=== PATIENT | female | born 1980 | race Caucasian/White ===

== ENCOUNTER 2018-05-15 09:20 | Inpatient (IN) | payer MEDICAID, SELFPAY ==
--- NOTE | 2018-05-15 10:18 | PCM.SN ---
- Free Text/Narrative Note: 37 y/o ZOHAIB 06/03/18 at EGA 37w2d. Presented to L&D C/O contractions. NST reactive, contractions q2-5 minutes, irregular. Cervix 1 cm, 20 % effaced, soft , posterior, vertex -3 station. Re-evaluate in 2-3 hours. Keep in L&D for now. We'll recheck patient in 2-3 hours (RN check) to see if cervical change. Z3A.37 GBS Carrier Z22.330 Irregular contractions O62.2 Patient's cervix changed to 5 cm dilated at approximately 2-30 p.m. patient admitted for labor. See history and physical
[2018-05-15] MEDS ORDERED: Nalbuphine 20 MG/ML 1 ML Syringe IVPUSH PRN (14:23)
[2018-05-15] MEDS ORDERED: Sodium Chloride 0.9% 10 ML Syringe FLUSH PRN (14:23)
[2018-05-15] MEDS ORDERED: Ampicillin 2 GM in Sodium Chloride 0.9% 100 ML IV ONE (14:24)
[2018-05-15] MEDS ORDERED: Lactated Ringers 1,000 ML ONE (14:28)
[2018-05-15] MEDS ORDERED: Sodium Chloride 0.9% 100 ML ONE (14:28)
[2018-05-15] MEDS ORDERED: Ampicillin 2 GM AdvVial IV ONE (14:28)
[2018-05-15] MEDS ORDERED: Oxytocin/Lactated Ringers 10 UNIT/1,000 ML BAG IV SCH ×2 (14:30)
[2018-05-15] MEDS ORDERED: Lactated Ringers 1,000 ML IV SCH (14:30)
--- NOTE | 2018-05-15 15:10 | PCM.LDHP ---
L&D History of Present Illness - General Date of Service: 05/15/18 Admit Problem/Dx: Patient Status Order with Admit Dx/Problem 05/15/18 14:23 Patient Status [ADT] Routine Admission Diagnosis/Problem Admission Diagnosis/Problem Source of Information: Patient History Limitations: Reports: No Limitations - History of Present Illness Introduction:: 37-year-old 0-1 (1 induced 1 spontaneous ) ZOHAIB 06/03/18 presented to labor and delivery complaining of irregular contractions. Patient was observed in labor and delivery and cervix changed from 1 cm 20% effaced to 5 cm and 50% effaced patient had needed for labor and delivery. Patient is group B strep positive. Blood type O- antibody screen negative on 11/30/17. Hemoglobin/hematocrit 12.6/ 37.2 and platelets 266,000. Rubella nonimmune VDRL nonreactive urine culture showed 40,000 colonies of Escherichia col on initial urine culture. Hepatitis B surface antigen was negative GC and chlamydia negative 03/17/18 hemoglobin/hematocrit 11.6/35.0 platelets 222,001 hour OB glucose screen 156 follow-up 3 hour glucose tolerance test fasting 87, 1 hour 154, two- hour 136, 3 hour 78. group B strep positive. On 03/17/18 patient received rRhoGam. Prior delivery 03/24/2017 at 37 weeks' gestation 6 lbs. 10 oz. female normal spontaneous vaginal delivery under epidural anesthesia Ultrasound obtained 11/05/1809 weeks 2 days single intrauterine gestation heart rate 172 Ultrasound 01/15/18 at 20 weeks and 2 days normal anatomy no abnormalities fundal and left lateral placenta no previa. Estimated weight that time 338 g (12 ounces) (48th percentile) C three-vessel cord HIPOLITO 10.78. Heart rate 1 52 bpm No known drug allergies. Patient underwent a LEEP procedure on 2007. 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) Location, : Reports: Abdomen, Lower back Quality: Reports: Pressure Severity: Moderate Pain Score: 6 Improves with: Reports: None Worsens with: Reports: None Associated Symptoms: Reports: N Past Medical History : 2 Para: 1 LMP (Approximate): Other (See Below) (Prior LEEP 2007) H&P Review of Systems - Review of Systems: Review Of Systems: See Below General: Reports: No Symptoms HEENT: Reports: No Symptoms Pulmonary: Reports: No Symptoms Cardiovascular: Reports: No Symptoms Gastrointestinal: Reports: No Symptoms Genitourinary: Reports: No Symptoms Musculoskeletal: Reports: No Symptoms Skin: Reports: No Symptoms Psychiatric: Reports: No Symptoms Neurological: Reports: No Symptoms Hematologic/Lymphatic: Reports: No Symptoms Immunologic: Reports: No Symptoms L&D Exam - Exam Exam: See Below - Vital Signs Weight: 214 lb 4.8 oz - OB Specific Fundal Height In cm: 37 Contraction Duration (sec): 60 Contraction Frequency (min): 2-5 Contraction Intensity: Moderate Movement: Active Heart Tones: Present Heart Tones per Min: 140 Heart Rate (FHR) Variability: Moderate (6-25 bmp) Presentation: Vertex - Amanda Score Amanda Score Cervix Position: Anterior Amanda Score Consistency: Soft Amanda Score Effacement: 31-50% Amanda Score Dilation: > 5 cm Amanda Score 's Station: -2 Amanda Score Total: 9 - Exam General: Alert, Oriented HEENT: Conjunctiva Clear, Mucosa Moist & [place], PERRLA Neck: Supple, Trachea Midline Lungs: Clear to Auscultation, Normal Respiratory Effort Cardiovascular: Regular Rate, Regular Rhythm GI/Abdominal Exam: Normal Bowel Sounds, Soft, Non-Tender Genitourinary: Normal external exam Extremities: Normal Inspection, Normal Range of Motion, Non-Tender, No Pedal Edema, Normal Capillary Refill Skin: Warm, Dry, Intact Neurological: Reflexes Equal Bilateral Psychiatric: Alert, Normal Affect, Normal Mood - Patient Data Lab Results Last 24 hrs: Laboratory Results - last 24 hr 05/15/18 05/15/18 05/15/18 Range/Units 09:32 10:00 10:00 WBC 9.08 (3.98-10.04) K/mm3 RBC 4.20 (3.98-5.22) M/mm3 Hgb 12.2 (11.2-15.7) gm/L Hct 37.6 (34.1-44.9) % MCV 89.5 (79.4-94.8) fl MCH 29.0 (25.6-32.2) pg MCHC 32.4 (32.2-35.5) g/dl RDW Std Deviation 46.1 (36.4-46.3) fL Plt Count 212 (182-369) K/mm3 MPV 11.0 (9.4-12.3) fl Neut % (Auto) 70.7 (34.0-71.1) % Lymph % (Auto) 18.5 L (19.3-51.7) % [place] % (Auto) 9.7 (4.7-12.5) % Eos % (Auto) 0.7 (0.7-5.8) Baso % (Auto) 0.2 (0.1-1.2) % Neut # (Auto) 6.42 H (1.56-6.13) K/mm3 Lymph # (Auto) 1.68 (1.18-3.74) K/mm3 [place] # (Auto) 0.88 H (0.24-0.36) K/mm3 Eos # (Auto) 0.06 (0.04-0.36) K/mm3 Baso # (Auto) 0.02 (0.01-0.08) K/mm3 Urine Color Yellow (Yellow) Urine Appearance Slt cloudy H (Clear) Urine pH 7.5 (5.0-8.0) Ur Specific [place] 1.020 (1.005-1.030) Urine Protein 1+ H (Negative) Urine Glucose (UA) Negative (Negative) Urine Ketones Negative (Negative) Urine Occult Blood Negative (Negative) Urine Nitrite Negative (Negative) Urine Bilirubin Negative (Negative) Urine Urobilinogen 0.2 (0.2-1.0) Ur Leukocyte Esterase Negative (Negative) Urine RBC 0-5 (0-5) /hpf Urine WBC 0-5 (0-5) /hpf Ur Epithelial Cells 0-5 (0-5) /hpf Urine Bacteria Few (FEW) /hpf Urine Mucus Not seen (FEW) /hpf Blood Type O NEGATIVE Gel Antibody Screen Positive Result Diagrams: 05/15/18 10:00 - Problem List (1) 37 weeks gestation of SNOMED Code(s): 53117294 ICD Code: Z3A.37 - 37 WEEKS GESTATION OF Status: Acute Current Visit: Yes (2) Carrier or suspected carrier of group B Streptococcus SNOMED Code(s): 709015481 ICD Code: Z22.330 - CARRIER OF GROUP B STREPTOCOCCUS Status: Acute Current Visit: Yes (3) Advanced maternal age (AMA) in SNOMED Code(s): 898214264 ICD Code: [id number] - Status: Acute Current Visit: Yes Problem List Initiated/Reviewed/Updated: No Orders Last 24hrs: Active Orders 24 hr Category Date Time Status Patient Status [ADT] Routine ADT 05/15/18 14:23 Active Activity as Tolerated [RC] PFP Care 05/15/18 14:23 Active Communication Order [RC] ASDIRECTED Care 05/15/18 14:23 Active Heart Tones [RC] ASDIRECTED Care 05/15/18 14:23 Active Non Stress Test [RC] PER UNIT ROUTINE Care 05/15/18 09:44 Active Notify Provider [RC] PFP Care 05/15/18 14:23 Active Notify Provider [RC] PRN Care 05/15/18 14:23 Active Peripheral IV Care [RC] . DIRECTED Care 05/15/18 14:23 Active Vital Signs [RC] PER UNIT ROUTINE Care 05/15/18 09:44 Active Regular Diet [DIET] Diet 05/15/18 Lunch Active ANTIBODY IDENTIFICATION [BBK] Stat Lab 05/15/18 10:00 Results CULTURE URINE [RM] Stat Lab 05/15/18 09:32 Received RAPID PLASMA REAGIN,RPR [CHEM] Routine Lab 05/15/18 10:00 Received TYPE AND SCREEN [BBK] Stat Lab 05/15/18 10:00 Results Ampicillin 1 gm Med 05/15/18 18:30 Active Sodium Chloride 0.9% [Normal Saline] 100 ml IV Q4H Lactated Ringers [Ringers, Lactated] 1,000 ml Med 05/15/18 14:30 Active IV ASDIRECTED Nalbuphine [Nubain] Med 05/15/18 14:23 Active 10 mg IVPUSH Q2H PRN Oxytocin/Lactated Ringers [Pitocin in LR 10 Units/1,000 Med 05/15/18 14:30 Active ML] 10 unit in 1,000 ml IV .CONTINUOUS Oxytocin/Lactated Ringers [Pitocin in LR 10 Units/1,000 Med 05/15/18 14:30 Active ML] 10 unit in 1,000 ml IV TITRATE Sodium Chloride 0.9% [Saline Flush] Med 05/15/18 14:23 Active 10 ml FLUSH ASDIRECTED PRN Electronic Heart Tones Ext w TOCO [WOMSER] Oth 05/15/18 14:23 Ordered Routine Electronic Heart Tones Internal [WOMSER] Per Unit Oth 05/15/18 14:23 Ordered Routine Peripheral IV Insertion Adult [OM.PC] Routine Oth 05/15/18 14:23 Ordered Resuscitation Status Routine Resus Stat 05/15/18 09:44 Ordered Medication Orders Ampicillin Sodium 1 gm/ Sodium (Chloride) 100 mls @ 200 mls/hr IV Q4H VINAYAK Lactated Ringer's (Ringers, Lactated) 1,000 mls @ 100 mls/hr IV ASDIRECTED VINAYAK Oxytocin/Lactated Ringer's (Pitocin In Lr 10 Units/1,000 Ml) 10 unit in 1,000 mls @ 500 mls/hr IV .CONTINUOUS VINAYAK Oxytocin/Lactated Ringer's (Pitocin In Lr 10 Units/1,000 Ml) 10 unit in 1,000 mls @ 12 mls/hr IV TITRATE VINAYAK; Protocol Nalbuphine HCl (Nubain) 10 mg IVPUSH Q2H PRN PRN Reason: pain Sodium Chloride (Saline Flush) 10 ml FLUSH ASDIRECTED PRN PRN Reason: Keep Vein Open Assessment/Plan Comment:: Plan labor and delivery
[2018-05-15] MEDS ORDERED: Ondansetron 4 MG/2 ML SDV IVPUSH PRN (16:01)
[2018-05-15] MEDS ORDERED: fentaNYL 100 MCG/2 ML SDV EPIDUR PRN (16:01)
[2018-05-15] MEDS ORDERED: diphenhydrAMINE 50 MG/ML SDV IVPUSH PRN (16:01)
[2018-05-15] MEDS ORDERED: ePHEDrine 50 MG/ML SDV IVPUSH PRN (16:01)
[2018-05-15] MEDS ORDERED: Bupivacaine/fentaNYL/NS 100 ML Bag EPIDUR SCH (16:15)
--- NOTE | 2018-05-15 16:24 | PCM.PREANE ---
Preanesthetic Assessment - Anesthesia/Transfusion/Family Hx Anesthesia History: Prior Anesthesia Without Reaction Family History of Anesthesia Reaction: No - Review of Systems General: No Symptoms Pulmonary: No Symptoms Cardiovascular: No Symptoms Gastrointestinal: No Symptoms Neurological: No Symptoms Other: Reports: None - Physical Assessment Pulse: 88 O2 Sat by Pulse Oximetry: 98 Respiratory Rate: 18 Blood Pressure: 130/88 Height: 1.73 m Weight: 97.205 kg ASA Class: 2 Mental Status: Alert & Oriented x3 Airway Class: Mallampati = 1 Dentition: Reports: Normal Dentition Thyro-Mental Finger Breadths: 3 Mouth Opening Finger Breadths: 3 ROM/Head Extension: Full Lungs: Clear to Auscultation, Normal Respiratory Effort Cardiovascular: Regular Rate, Regular Rhythm - Lab Values: Laboratory Last Values WBC 9.08 K/mm3 (3.98-10.04) 05/15/18 10:00 RBC 4.20 M/mm3 (3.98-5.22) 05/15/18 10:00 Hgb 12.2 gm/L (11.2-15.7) 05/15/18 10:00 Hct 37.6 % (34.1-44.9) 05/15/18 10:00 MCV 89.5 fl (79.4-94.8) 05/15/18 10:00 MCH 29.0 pg (25.6-32.2) 05/15/18 10:00 MCHC 32.4 g/dl (32.2-35.5) 05/15/18 10:00 RDW Std Deviation 46.1 fL (36.4-46.3) 05/15/18 10:00 Plt Count 212 K/mm3 (182-369) 05/15/18 10:00 MPV 11.0 fl (9.4-12.3) 05/15/18 10:00 Neut % (Auto) 70.7 % (34.0-71.1) 05/15/18 10:00 Lymph % (Auto) 18.5 % (19.3-51.7) L 05/15/18 10:00 [place] % (Auto) 9.7 % (4.7-12.5) 05/15/18 10:00 Eos % (Auto) 0.7 (0.7-5.8) 05/15/18 10:00 Baso % (Auto) 0.2 % (0.1-1.2) 05/15/18 10:00 Neut # (Auto) 6.42 K/mm3 (1.56-6.13) H 05/15/18 10:00 Lymph # (Auto) 1.68 K/mm3 (1.18-3.74) 05/15/18 10:00 [place] # (Auto) 0.88 K/mm3 (0.24-0.36) H 05/15/18 10:00 Eos # (Auto) 0.06 K/mm3 (0.04-0.36) 05/15/18 10:00 Baso # (Auto) 0.02 K/mm3 (0.01-0.08) 05/15/18 10:00 Urine Color Yellow (Yellow) 05/15/18 09:32 Urine Appearance Slt cloudy (Clear) H 05/15/18 09:32 Urine pH 7.5 (5.0-8.0) 05/15/18 09:32 Ur Specific [place] 1.020 (1.005-1.030) 05/15/18 09:32 Urine Protein 1+ (Negative) H 05/15/18 09:32 Urine Glucose (UA) Negative (Negative) 05/15/18 09:32 Urine Ketones Negative (Negative) 05/15/18 09:32 Urine Occult Blood Negative (Negative) 05/15/18 09:32 Urine Nitrite Negative (Negative) 05/15/18 09:32 Urine Bilirubin Negative (Negative) 05/15/18 09:32 Urine Urobilinogen 0.2 (0.2-1.0) 05/15/18 09:32 Ur Leukocyte Esterase Negative (Negative) 05/15/18 09:32 Urine RBC 0-5 /hpf (0-5) 05/15/18 09:32 Urine WBC 0-5 /hpf (0-5) 05/15/18 09:32 Ur Epithelial Cells 0-5 /hpf (0-5) 05/15/18 09:32 Urine Bacteria Few /hpf (FEW) 05/15/18 09:32 Urine Mucus Not seen /hpf (FEW) 05/15/18 09:32 Blood Type O NEGATIVE 05/15/18 10:00 Gel Antibody Screen Positive 05/15/18 10:00 - Acknowledgements Anesthesia Type Planned: Spinal Pt an Appropriate Candidate for the Planned Anesthesia: Yes Alternatives and Risks of Anesthesia Discussed w Pt/Guardian: Yes Pt/Guardian Understands and Agrees with Anesthesia Plan: Yes PreAnesthesia Questionnaire - CURRENT (IN HOUSE) MEDS Current Meds: Current Medications Diphenhydramine HCl (Benadryl) 25 mg IVPUSH Q6H PRN PRN Reason: Pruritis Ephedrine Sulfate (Ephedrine Sulfate) 5 mg IVPUSH ASDIRECTED PRN PRN Reason: Hypotension Fentanyl (Sublimaze) 100 mcg EPIDUR ONETIME PRN PRN Reason: Pain Fentanyl/Bupivacaine HCl (Fentanyl/Bupivacaine/Ns 2 Mcg-0.125% 100 Ml) 100 ml EPIDUR ASDIRECTED VINAYAK Ampicillin Sodium 1 gm/ Sodium (Chloride) 100 mls @ 200 mls/hr IV Q4H VINAYAK Lactated Ringer's (Ringers, Lactated) 1,000 mls @ 100 mls/hr IV ASDIRECTED VINAYAK Oxytocin/Lactated Ringer's (Pitocin In Lr 10 Units/1,000 Ml) 10 unit in 1,000 mls @ 500 mls/hr IV .CONTINUOUS VINAYAK Oxytocin/Lactated Ringer's (Pitocin In Lr 10 Units/1,000 Ml) 10 unit in 1,000 mls @ 12 mls/hr IV TITRATE VINAYAK; Protocol Nalbuphine HCl (Nubain) 10 mg IVPUSH Q2H PRN PRN Reason: pain Ondansetron HCl (Zofran) 4 mg IVPUSH ONETIME PRN PRN Reason: Nausea/Vomiting Sodium Chloride (Saline Flush) 10 ml FLUSH ASDIRECTED PRN PRN Reason: Keep Vein Open Discontinued Medications Ampicillin Sodium (Ampicillin) Confirm Administered Dose 2 gm IV .STK-MED ONE Stop: 05/15/18 14:29 Ampicillin Sodium 2 gm/ Sodium (Chloride) 100 mls @ 200 mls/hr IV ONETIME ONE Stop: 05/15/18 14:53 Lactated Ringer's (Ringers, Lactated) Confirm Administered Dose 1,000 mls @ as directed .ROUTE .STK-MED ONE Stop: 05/15/18 14:29 Sodium Chloride (Normal Saline) Confirm Administered Dose 100 mls @ as directed .ROUTE .STK-MED ONE Stop: 05/15/18 14:29
--- NOTE | 2018-05-15 16:28 | PCM.SN ---
- Free Text/Narrative Note: IV start Difficult IV start. Called by nursing staff. Unable to obtain IV access after multiple prior attempts. IV start x4. Able to obtain access in her left forearm with a 20 gauge utilizing ultrasound guidance. Lidocaine utilized to skin. ChloraPrep. Transparent dressing to secure site.
--- NOTE | 2018-05-15 18:17 | PCM.DEL ---
L & D Note - General Info Date of Service: 05/15/18 Mother's Due Date: 06/03/18 - Delivery Note Labor: Spontaneous Delivery Outcome: Livebirth (male liveborn 1649 hrs Thursday05/15/18 LUCINDA APGARs 8 /9 weight pending) Delivery Method: Spontaneous Vaginal Delivery-Single Delivery Mode: Spontaneous Presentation: Left Occiput Anterior (LUCINDA) Nuchal Cord: None Prep: Povidone-Iodine (Betadine Anesthesia Type: Spinal Episiotomy Type: None Laceration: 1st Degree (periurethral and midline sutured with 3-0 monocryl) Suture type: Other (monocryl) Suture size: 3-0 Placenta: Intact, Spontaneous (165005/15/18 intact discarded spontaneous delivery) Cord: 3 Vessels Estimated Blood Loss: 250 Resuscitation Needed: No [place]: Suctioned, Bulb Syringe, Stimulated, Warmed, [place] Used, Warmer Used Provider: Pierre Bal Score 1 min: 8 Score 5 min: 9 - General Info Date of Service: 05/15/18 Functional Status: Reports: Pain Controlled - Review of Systems General: Reports: No Symptoms HEENT: Reports: No Symptoms Pulmonary: Reports: No Symptoms Cardiovascular: Reports: No Symptoms Gastrointestinal: Reports: No Symptoms Genitourinary: Reports: No Symptoms Musculoskeletal: Reports: No Symptoms Skin: Reports: No Symptoms Neurological: Reports: No Symptoms Psychiatric: Reports: No Symptoms - Patient Data Vitals - Most Recent: Last Vital Signs Temp 98.6 F 05/15/18 09:36 Pulse 88 05/15/18 16:24 Resp 18 05/15/18 16:24 BP 130/88 05/15/18 16:24 Pulse Ox 98 05/15/18 16:24 Weight - Most Recent: 214 lb 4.8 oz Lab Results Last 24 Hours: Laboratory Results - last 24 hr 05/15/18 05/15/18 05/15/18 Range/Units 09:32 10:00 10:00 WBC 9.08 (3.98-10.04) K/mm3 RBC 4.20 (3.98-5.22) M/mm3 Hgb 12.2 (11.2-15.7) gm/L Hct 37.6 (34.1-44.9) % MCV 89.5 (79.4-94.8) fl MCH 29.0 (25.6-32.2) pg MCHC 32.4 (32.2-35.5) g/dl RDW Std Deviation 46.1 (36.4-46.3) fL Plt Count 212 (182-369) K/mm3 MPV 11.0 (9.4-12.3) fl Neut % (Auto) 70.7 (34.0-71.1) % Lymph % (Auto) 18.5 L (19.3-51.7) % [place] % (Auto) 9.7 (4.7-12.5) % Eos % (Auto) 0.7 (0.7-5.8) Baso % (Auto) 0.2 (0.1-1.2) % Neut # (Auto) 6.42 H (1.56-6.13) K/mm3 Lymph # (Auto) 1.68 (1.18-3.74) K/mm3 [place] # (Auto) 0.88 H (0.24-0.36) K/mm3 Eos # (Auto) 0.06 (0.04-0.36) K/mm3 Baso # (Auto) 0.02 (0.01-0.08) K/mm3 Urine Color Yellow (Yellow) Urine Appearance Slt cloudy H (Clear) Urine pH 7.5 (5.0-8.0) Ur Specific [place] 1.020 (1.005-1.030) Urine Protein 1+ H (Negative) Urine Glucose (UA) Negative (Negative) Urine Ketones Negative (Negative) Urine Occult Blood Negative (Negative) Urine Nitrite Negative (Negative) Urine Bilirubin Negative (Negative) Urine Urobilinogen 0.2 (0.2-1.0) Ur Leukocyte Esterase Negative (Negative) Urine RBC 0-5 (0-5) /hpf Urine WBC 0-5 (0-5) /hpf Ur Epithelial Cells 0-5 (0-5) /hpf Urine Bacteria Few (FEW) /hpf Urine Mucus Not seen (FEW) /hpf Blood Type O NEGATIVE Gel Antibody Screen Positive Med Orders - Current: Current Medications Diphenhydramine HCl (Benadryl) 25 mg IVPUSH Q6H PRN PRN Reason: Pruritis Ephedrine Sulfate (Ephedrine Sulfate) 5 mg IVPUSH ASDIRECTED PRN PRN Reason: Hypotension Fentanyl (Sublimaze) 100 mcg EPIDUR ONETIME PRN PRN Reason: Pain Fentanyl/Bupivacaine HCl (Fentanyl/Bupivacaine/Ns 2 Mcg-0.125% 100 Ml) 100 ml EPIDUR ASDIRECTED VINAYAK Ampicillin Sodium 1 gm/ Sodium (Chloride) 100 mls @ 200 mls/hr IV Q4H VINAYAK Lactated Ringer's (Ringers, Lactated) 1,000 mls @ 100 mls/hr IV ASDIRECTED VINAYAK Oxytocin/Lactated Ringer's (Pitocin In Lr 10 Units/1,000 Ml) 10 unit in 1,000 mls @ 500 mls/hr IV .CONTINUOUS VINAYAK Oxytocin/Lactated Ringer's (Pitocin In Lr 10 Units/1,000 Ml) 10 unit in 1,000 mls @ 12 mls/hr IV TITRATE VINAYAK; Protocol Nalbuphine HCl (Nubain) 10 mg IVPUSH Q2H PRN PRN Reason: pain Ondansetron HCl (Zofran) 4 mg IVPUSH ONETIME PRN PRN Reason: Nausea/Vomiting Sodium Chloride (Saline Flush) 10 ml FLUSH ASDIRECTED PRN PRN Reason: Keep Vein Open Discontinued Medications Ampicillin Sodium (Ampicillin) Confirm Administered Dose 2 gm IV .STK-MED ONE Stop: 05/15/18 14:29 Ampicillin Sodium 2 gm/ Sodium (Chloride) 100 mls @ 200 mls/hr IV ONETIME ONE Stop: 05/15/18 14:53 Lactated Ringer's (Ringers, Lactated) Confirm Administered Dose 1,000 mls @ as directed .ROUTE .STK-MED ONE Stop: 05/15/18 14:29 Sodium Chloride (Normal Saline) Confirm Administered Dose 100 mls @ as directed .ROUTE .STK-MED ONE Stop: 05/15/18 14:29 - Exam General: Alert, Oriented HEENT: Pupils Equal, Mucous Membr. Moist/[place] Neck: Supple (Female) Exam: Normal External Exam Extremities: Normal Inspection, Normal Range of Motion, Non-Tender, No Pedal Edema, Normal Capillary Refill - Problem List & Annotations (1) 37 weeks gestation of SNOMED Code(s): 93115375 Code(s): Z3A.37 - 37 WEEKS GESTATION OF Status: Acute Current Visit: Yes (2) Carrier or suspected carrier of group B Streptococcus SNOMED Code(s): 450917949 Code(s): Z22.330 - CARRIER OF GROUP B STREPTOCOCCUS Status: Acute Current Visit: Yes (3) Advanced maternal age (AMA) in SNOMED Code(s): 365853684 Code(s): TAY4324 - Status: Acute Current Visit: Yes (4) Encounter for full-term uncomplicated delivery SNOMED Code(s): 01457564, 242512521 Code(s): O80 - ENCOUNTER FOR FULL-TERM UNCOMPLICATED DELIVERY Status: Acute Current Visit: Yes - Problem List Review Problem List Initiated/Reviewed/Updated: No - My Orders Last 24 Hours: My Active Orders 05/15/18 09:32 CULTURE URINE [RM] Stat 05/15/18 09:44 Non Stress Test [RC] PER UNIT ROUTINE Vital Signs [RC] PER UNIT ROUTINE Resuscitation Status Routine 05/15/18 10:00 ANTIBODY IDENTIFICATION [BBK] Stat RAPID PLASMA REAGIN,RPR [CHEM] Routine TYPE AND SCREEN [BBK] Stat 05/15/18 14:23 Patient Status [ADT] Routine Activity as Tolerated [RC] PFP Communication Order [RC] ASDIRECTED Heart Tones [RC] ASDIRECTED Notify Provider [RC] PFP Notify Provider [RC] PRN Peripheral IV Care [RC] . DIRECTED Nalbuphine [Nubain] 10 mg IVPUSH Q2H PRN Sodium Chloride 0.9% [Saline Flush] 10 ml FLUSH ASDIRECTED PRN Electronic Heart Tones Ext w TOCO [WOMSER] Routine Electronic Heart Tones Internal [WOMSER] Per Unit Routine Peripheral IV Insertion Adult [OM.PC] Routine 05/15/18 14:30 Lactated Ringers [Ringers, Lactated] 1,000 ml IV ASDIRECTED Oxytocin/Lactated Ringers [Pitocin in LR 10 Units/1,000 ML] 10 unit in 1,000 ml IV .CONTINUOUS Oxytocin/Lactated Ringers [Pitocin in LR 10 Units/1,000 ML] 10 unit in 1,000 ml IV TITRATE 05/15/18 18:30 Ampicillin 1 gm Sodium Chloride 0.9% [Normal Saline] 100 ml IV Q4H 05/15/18 Lunch Regular Diet [DIET] - Plan Plan:: Plan labor and delivery
[2018-05-15] MEDS ORDERED: Lanolin 100% Cream 7 GM Tube TOP PRN (18:25)
[2018-05-15] MEDS ORDERED: Benzocaine/Menthol 20%-0.5% Spray 56 GM Canister TOP PRN (18:25)
[2018-05-15] MEDS ORDERED: Acetaminophen 325 MG Tab PO PRN (18:25)
[2018-05-15] MEDS ORDERED: Docusate Sodium 100 MG Cap PO PRN (18:25)
[2018-05-15] MEDS ORDERED: Witch Hazel Medicated Pads 100/Jar TOP PRN (18:25)
[2018-05-15] MEDS ORDERED: Ampicillin 1 GM in Sodium Chloride 0.9% 100 ML IV SCH (18:30)
[2018-05-15] MEDS: Ibuprofen 600 MG Tab PO PRN (22:15)
--- NOTE | 2018-05-16 07:59 | PCM48HPAN ---
Post Anesthesia Note - EVALUATION WITHIN 48HRS OF ANESTHETIC Vital Signs in Normal Range: Yes Patient Participated in Evaluation: Yes Respiratory Function Stable: Yes Airway Patent: Yes Cardiovascular Function Stable: Yes Hydration Status Stable: Yes Pain Control Satisfactory: Yes Nausea and Vomiting Control Satisfactory: Yes Mental Status Recovered: Yes
--- NOTE | 2018-05-16 10:39 | PCM.SN ---
- Free Text/Narrative Note: PPD#1 Afebrile, no heavy vaginal bleeding, uterus involuting normally, no leg cramping.
[2018-05-16] MEDS: Ibuprofen 600 MG Tab PO PRN (15:00)
--- NOTE | 2018-05-17 08:29 | PCM.DCSUM1 ---
Discharge Summary - Hospital Course Free Text/Narrative:: [facility] LIVE L/D Delivery Note Patient Name: DANYELL STOVALL Date of : 78 Patient Status: Inpatient Attending Provider: Pierre Bal Date: 05/15/18 18:13 Initialization Date: 05/15/18 18:13 L & D Note - General Info Date of Service: 05/15/18 Mother's Due Date: 06/03/18 - Delivery Note Labor: Spontaneous Delivery Outcome: Livebirth (male liveborn 1649 hrs Thursday05/15/18 LUCINDA APGARs 8 /9 weight pending) Delivery Method: Spontaneous Vaginal Delivery-Single Delivery Mode: Spontaneous Presentation: Left Occiput Anterior (LUCINDA) Nuchal Cord: None Prep: Povidone-Iodine (Betadine Anesthesia Type: Spinal Episiotomy Type: None Laceration: 1st Degree (periurethral and midline sutured with 3-0 monocryl) Suture type: Other (monocryl) Suture size: 3-0 Placenta: Intact, Spontaneous (165005/15/18 intact discarded spontaneous delivery) Cord: 3 Vessels Estimated Blood Loss: 250 Resuscitation Needed: No [place]: Suctioned, Bulb Syringe, Stimulated, Warmed, [place] Used, Warmer Used Provider: Pierre Bal Score 1 min: 8 Score 5 min: 9 - General Info Date of Service: 05/15/18 Functional Status: Reports: Pain Controlled - Review of Systems General: Reports: No Symptoms HEENT: Reports: No Symptoms Pulmonary: Reports: No Symptoms Cardiovascular: Reports: No Symptoms Gastrointestinal: Reports: No Symptoms Genitourinary: Reports: No Symptoms Musculoskeletal: Reports: No Symptoms Skin: Reports: No Symptoms Neurological: Reports: No Symptoms Psychiatric: Reports: No Symptoms - Patient Data Vitals - Most Recent: Last Vital Signs Temp 98.6 F 05/15/18 09:36 Pulse 88 05/15/18 16:24 Resp 18 05/15/18 16:24 BP 130/88 05/15/18 16:24 Pulse Ox 98 05/15/18 16:24 Weight - Most Recent: 214 lb 4.8 oz Lab Results Last 24 Hours: Laboratory Results - last 24 hr 05/15/18 05/15/18 05/15/18 Range/Units 09:32 10:00 10:00 WBC 9.08 (3.98-10.04) K/mm3 RBC 4.20 (3.98-5.22) M/mm3 Hgb 12.2 (11.2-15.7) gm/L Hct 37.6 (34.1-44.9) % MCV 89.5 (79.4-94.8) fl MCH 29.0 (25.6-32.2) pg MCHC 32.4 (32.2-35.5) g/dl RDW Std Deviation 46.1 (36.4-46.3) fL Plt Count 212 (182-369) K/mm3 MPV 11.0 (9.4-12.3) fl Neut % (Auto) 70.7 (34.0-71.1) % Lymph % (Auto) 18.5 L (19.3-51.7) % Reeves % (Auto) 9.7 (4.7-12.5) % Eos % (Auto) 0.7 (0.7-5.8) Baso % (Auto) 0.2 (0.1-1.2) % Neut # (Auto) 6.42 H (1.56-6.13) K/mm3 Lymph # (Auto) 1.68 (1.18-3.74) K/mm3 Reeves # (Auto) 0.88 H (0.24-0.36) K/mm3 Eos # (Auto) 0.06 (0.04-0.36) K/mm3 Baso # (Auto) 0.02 (0.01-0.08) K/mm3 Urine Color Yellow (Yellow) Urine Appearance Slt cloudy H (Clear) Urine pH 7.5 (5.0-8.0) Ur Specific [place] 1.020 (1.005-1.030) Urine Protein 1+ H (Negative) Urine Glucose (UA) Negative (Negative) Urine Ketones Negative (Negative) Urine Occult Blood Negative (Negative) Urine Nitrite Negative (Negative) Urine Bilirubin Negative (Negative) Urine Urobilinogen 0.2 (0.2-1.0) Ur Leukocyte Esterase Negative (Negative) Urine RBC 0-5 (0-5) /hpf Urine WBC 0-5 (0-5) /hpf Ur Epithelial Cells 0-5 (0-5) /hpf Urine Bacteria Few (FEW) /hpf Urine Mucus Not seen (FEW) /hpf Blood Type O NEGATIVE Gel Antibody Screen Positive Med Orders - Current: Current Medications Diphenhydramine HCl (Benadryl) 25 mg IVPUSH Q6H PRN PRN Reason: Pruritis Ephedrine Sulfate (Ephedrine Sulfate) 5 mg IVPUSH ASDIRECTED PRN PRN Reason: Hypotension Fentanyl (Sublimaze) 100 mcg EPIDUR ONETIME PRN PRN Reason: Pain Fentanyl/Bupivacaine HCl (Fentanyl/Bupivacaine/Ns 2 Mcg-0.125% 100 Ml) 100 ml EPIDUR ASDIRECTED VINAYAK Ampicillin Sodium 1 gm/ Sodium (Chloride) 100 mls @ 200 mls/hr IV Q4H VINAYAK Lactated Ringer's (Ringers, Lactated) 1,000 mls @ 100 mls/hr IV ASDIRECTED VINAYAK Oxytocin/Lactated Ringer's (Pitocin In Lr 10 Units/1,000 Ml) 10 unit in 1,000 mls @ 500 mls/hr IV .CONTINUOUS VINAYAK Oxytocin/Lactated Ringer's (Pitocin In Lr 10 Units/1,000 Ml) 10 unit in 1,000 mls @ 12 mls/hr IV TITRATE VINAYAK; Protocol Nalbuphine HCl (Nubain) 10 mg IVPUSH Q2H PRN PRN Reason: pain Ondansetron HCl (Zofran) 4 mg IVPUSH ONETIME PRN PRN Reason: Nausea/Vomiting Sodium Chloride (Saline Flush) 10 ml FLUSH ASDIRECTED PRN PRN Reason: Keep Vein Open Discontinued Medications Ampicillin Sodium (Ampicillin) Confirm Administered Dose 2 gm IV .ST-MED ONE Stop: 05/15/18 14:29 Ampicillin Sodium 2 gm/ Sodium (Chloride) 100 mls @ 200 mls/hr IV ONETIME ONE Stop: 05/15/18 14:53 Lactated Ringer's (Ringers, Lactated) Confirm Administered Dose 1,000 mls @ as directed .ROUTE .ST-MED ONE Stop: 05/15/18 14:29 Sodium Chloride (Normal Saline) Confirm Administered Dose 100 mls @ as directed .ROUTE .[facility]-MED ONE Stop: 05/15/18 14:29 - Exam General: Alert, Oriented HEENT: Pupils Equal, Mucous Membr. Moist/[place] Neck: Supple (Female) Exam: Normal External Exam Extremities: Normal Inspection, Normal Range of Motion, Non-Tender, No Pedal Edema, Normal Capillary Refill - Problem List & Annotations (1) 37 weeks gestation of SNOMED Code(s): 90127210 Code(s): Z3A.37 - 37 WEEKS GESTATION OF Status: Acute Current Visit: Yes (2) Carrier or suspected carrier of group B Streptococcus SNOMED Code(s): 253034241 Code(s): Z22.330 - CARRIER OF GROUP B STREPTOCOCCUS Status: Acute Current Visit: Yes (3) Advanced maternal age (AMA) in SNOMED Code(s): 633191723 Code(s): PTK4320 - Status: Acute Current Visit: Yes (4) Encounter for full-term uncomplicated delivery SNOMED Code(s): 23883577, 305213652 Code(s): O80 - ENCOUNTER FOR FULL-TERM UNCOMPLICATED DELIVERY Status: Acute Current Visit: Yes - Problem List Review Problem List Initiated/Reviewed/Updated: No - My Orders Last 24 Hours: My Active Orders 05/15/18 09:32 CULTURE URINE [RM] Stat 05/15/18 09:44 Non Stress Test [RC] PER UNIT ROUTINE Vital Signs [RC] PER UNIT ROUTINE Resuscitation Status Routine 05/15/18 10:00 ANTIBODY IDENTIFICATION [BBK] Stat RAPID PLASMA REAGIN,RPR [CHEM] Routine TYPE AND SCREEN [BBK] Stat 05/15/18 14:23 Patient Status [ADT] Routine Activity as Tolerated [RC] PFP Communication Order [RC] ASDIRECTED Heart Tones [RC] ASDIRECTED Notify Provider [RC] PFP Notify Provider [RC] PRN Peripheral IV Care [RC] . DIRECTED Nalbuphine [Nubain] 10 mg IVPUSH Q2H PRN Sodium Chloride 0.9% [Saline Flush] 10 ml FLUSH ASDIRECTED PRN Electronic Heart Tones Ext w TOCO [WOMSER] Routine Electronic Heart Tones Internal [WOMSER] Per Unit Routine Peripheral IV Insertion Adult [OM.PC] Routine 05/15/18 14:30 Lactated Ringers [Ringers, Lactated] 1,000 ml IV ASDIRECTED Oxytocin/Lactated Ringers [Pitocin in LR 10 Units/1,000 ML] 10 unit in 1,000 ml IV .CONTINUOUS Oxytocin/Lactated Ringers [Pitocin in LR 10 Units/1,000 ML] 10 unit in 1,000 ml IV TITRATE 05/15/18 18:30 Ampicillin 1 gm Sodium Chloride 0.9% [Normal Saline] 100 ml IV Q4H 05/15/18 Lunch Regular Diet [DIET] - Plan Plan:: Plan labor and delivery HPI Initial Comments: [facility] LIVE L/D Delivery Note Patient Name: DANYELL STOVALL Date of : 78 Patient Status: Inpatient Attending Provider: Pierre Bal Date: 05/15/18 18:13 Initialization Date: 05/15/18 18:13 L & D Note - General Info Date of Service: 05/15/18 Mother's Due Date: 06/03/18 - Delivery Note Labor: Spontaneous Delivery Outcome: Livebirth (male liveborn 1649 hrs Thursday05/15/18 LUCINDA APGARs 8 /9 weight pending) Delivery Method: Spontaneous Vaginal Delivery-Single Infant Delivery Mode: Spontaneous Presentation: Left Occiput Anterior (LUCINDA) Nuchal Cord: None Prep: Povidone-Iodine (Betadine Anesthesia Type: Spinal Episiotomy Type: None Laceration: 1st Degree (periurethral and midline sutured with 3-0 monocryl) Suture type: Other (monocryl) Suture size: 3-0 Placenta: Intact, Spontaneous (1651 Thursday05/15/18 intact discarded spontaneous delivery) Cord: 3 Vessels Estimated Blood Loss: 250 Resuscitation Needed: No : Suctioned, Bulb Syringe, Stimulated, Warmed, [place] Used, Warmer Used Provider: Pierre Bal Score 1 min: 8 Score 5 min: 9 - General Info Date of Service: 05/15/18 Functional Status: Reports: Pain Controlled - Review of Systems General: Reports: No Symptoms HEENT: Reports: No Symptoms Pulmonary: Reports: No Symptoms Cardiovascular: Reports: No Symptoms Gastrointestinal: Reports: No Symptoms Genitourinary: Reports: No Symptoms Musculoskeletal: Reports: No Symptoms Skin: Reports: No Symptoms Neurological: Reports: No Symptoms Psychiatric: Reports: No Symptoms - Patient Data Vitals - Most Recent: Last Vital Signs Temp 98.6 F 05/15/18 09:36 Pulse 88 05/15/18 16:24 Resp 18 05/15/18 16:24 BP 130/88 05/15/18 16:24 Pulse Ox 98 05/15/18 16:24 Weight - Most Recent: 214 lb 4.8 oz Lab Results Last 24 Hours: Laboratory Results - last 24 hr 05/15/18 05/15/18 05/15/18 Range/Units 09:32 10:00 10:00 WBC 9.08 (3.98-10.04) K/mm3 RBC 4.20 (3.98-5.22) M/mm3 Hgb 12.2 (11.2-15.7) gm/L Hct 37.6 (34.1-44.9) % MCV 89.5 (79.4-94.8) fl MCH 29.0 (25.6-32.2) pg MCHC 32.4 (32.2-35.5) g/dl RDW Std Deviation 46.1 (36.4-46.3) fL Plt Count 212 (182-369) K/mm3 MPV 11.0 (9.4-12.3) fl Neut % (Auto) 70.7 (34.0-71.1) % Lymph % (Auto) 18.5 L (19.3-51.7) % Reeves % (Auto) 9.7 (4.7-12.5) % Eos % (Auto) 0.7 (0.7-5.8) Baso % (Auto) 0.2 (0.1-1.2) % Neut # (Auto) 6.42 H (1.56-6.13) K/mm3 Lymph # (Auto) 1.68 (1.18-3.74) K/mm3 Reeves # (Auto) 0.88 H (0.24-0.36) K/mm3 Eos # (Auto) 0.06 (0.04-0.36) K/mm3 Baso # (Auto) 0.02 (0.01-0.08) K/mm3 Urine Color Yellow (Yellow) Urine Appearance Slt cloudy H (Clear) Urine pH 7.5 (5.0-8.0) Ur Specific [place] 1.020 (1.005-1.030) Urine Protein 1+ H (Negative) Urine Glucose (UA) Negative (Negative) Urine Ketones Negative (Negative) Urine Occult Blood Negative (Negative) Urine Nitrite Negative (Negative) Urine Bilirubin Negative (Negative) Urine Urobilinogen 0.2 (0.2-1.0) Ur Leukocyte Esterase Negative (Negative) Urine RBC 0-5 (0-5) /hpf Urine WBC 0-5 (0-5) /hpf Ur Epithelial Cells 0-5 (0-5) /hpf Urine Bacteria Few (FEW) /hpf Urine Mucus Not seen (FEW) /hpf Blood Type O NEGATIVE Gel Antibody Screen Positive Med Orders - Current: Current Medications Diphenhydramine HCl (Benadryl) 25 mg IVPUSH Q6H PRN PRN Reason: Pruritis Ephedrine Sulfate (Ephedrine Sulfate) 5 mg IVPUSH ASDIRECTED PRN PRN Reason: Hypotension Fentanyl (Sublimaze) 100 mcg EPIDUR ONETIME PRN PRN Reason: Pain Fentanyl/Bupivacaine HCl (Fentanyl/Bupivacaine/Ns 2 Mcg-0.125% 100 Ml) 100 ml EPIDUR ASDIRECTED VINAYAK Ampicillin Sodium 1 gm/ Sodium (Chloride) 100 mls @ 200 mls/hr IV Q4H VINAYAK Lactated Ringer's (Ringers, Lactated) 1,000 mls @ 100 mls/hr IV ASDIRECTED VINAYAK Oxytocin/Lactated Ringer's (Pitocin In Lr 10 Units/1,000 Ml) 10 unit in 1,000 mls @ 500 mls/hr IV .CONTINUOUS VINAYAK Oxytocin/Lactated Ringer's (Pitocin In Lr 10 Units/1,000 Ml) 10 unit in 1,000 mls @ 12 mls/hr IV TITRATE VINAYAK; Protocol Nalbuphine HCl (Nubain) 10 mg IVPUSH Q2H PRN PRN Reason: pain Ondansetron HCl (Zofran) 4 mg IVPUSH ONETIME PRN PRN Reason: Nausea/Vomiting Sodium Chloride (Saline Flush) 10 ml FLUSH ASDIRECTED PRN PRN Reason: Keep Vein Open Discontinued Medications Ampicillin Sodium (Ampicillin) Confirm Administered Dose 2 gm IV .STK-MED ONE Stop: 05/15/18 14:29 Ampicillin Sodium 2 gm/ Sodium (Chloride) 100 mls @ 200 mls/hr IV ONETIME ONE Stop: 05/15/18 14:53 Lactated Ringer's (Ringers, Lactated) Confirm Administered Dose 1,000 mls @ as directed .ROUTE .STK-MED ONE Stop: 05/15/18 14:29 Sodium Chloride (Normal Saline) Confirm Administered Dose 100 mls @ as directed .ROUTE .STK-MED ONE Stop: 05/15/18 14:29 - Exam General: Alert, Oriented HEENT: Pupils Equal, Mucous Membr. Moist/[place] Neck: Supple (Female) Exam: Normal External Exam Extremities: Normal Inspection, Normal Range of Motion, Non-Tender, No Pedal Edema, Normal Capillary Refill - Problem List & Annotations (1) 37 weeks gestation of SNOMED Code(s): 23334941 Code(s): Z3A.37 - 37 WEEKS GESTATION OF Status: Acute Current Visit: Yes (2) Carrier or suspected carrier of group B Streptococcus SNOMED Code(s): 670302455 Code(s): Z22.330 - CARRIER OF GROUP B STREPTOCOCCUS Status: Acute Current Visit: Yes (3) Advanced maternal age (AMA) in SNOMED Code(s): 662987699 Code(s): IFN7027 - Status: Acute Current Visit: Yes (4) Encounter for full-term uncomplicated delivery SNOMED Code(s): 40599106, 650348551 Code(s): O80 - ENCOUNTER FOR FULL-TERM UNCOMPLICATED DELIVERY Status: Acute Current Visit: Yes - Problem List Review Problem List Initiated/Reviewed/Updated: No - My Orders Last 24 Hours: My Active Orders 05/15/18 09:32 CULTURE URINE [RM] Stat 05/15/18 09:44 Non Stress Test [RC] PER UNIT ROUTINE Vital Signs [RC] PER UNIT ROUTINE Resuscitation Status Routine 05/15/18 10:00 ANTIBODY IDENTIFICATION [BBK] Stat RAPID PLASMA REAGIN,RPR [CHEM] Routine TYPE AND SCREEN [BBK] Stat 05/15/18 14:23 Patient Status [ADT] Routine Activity as Tolerated [RC] PFP Communication Order [RC] ASDIRECTED Heart Tones [RC] ASDIRECTED Notify Provider [RC] PFP Notify Provider [RC] PRN Peripheral IV Care [RC] . DIRECTED Nalbuphine [Nubain] 10 mg IVPUSH Q2H PRN Sodium Chloride 0.9% [Saline Flush] 10 ml FLUSH ASDIRECTED PRN Electronic Heart Tones Ext w TOCO [WOMSER] Routine Electronic Heart Tones Internal [WOMSER] Per Unit Routine Peripheral IV Insertion Adult [OM.PC] Routine 05/15/18 14:30 Lactated Ringers [Ringers, Lactated] 1,000 ml IV ASDIRECTED Oxytocin/Lactated Ringers [Pitocin in LR 10 Units/1,000 ML] 10 unit in 1,000 ml IV .CONTINUOUS Oxytocin/Lactated Ringers [Pitocin in LR 10 Units/1,000 ML] 10 unit in 1,000 ml IV TITRATE 05/15/18 18:30 Ampicillin 1 gm Sodium Chloride 0.9% [Normal Saline] 100 ml IV Q4H 05/15/18 Lunch Regular Diet [DIET] - Plan Plan:: Plan labor and delivery Brief History: [facility] LIVE . L/D Delivery Note. Patient Name: DANYELL STOVALL [facility] Record Number: [id number]. Date of : Patient Status: Inpatient. Attending Provider: Pierre Bal Number: [id number]. Date: 05/15/18 18:13Initialization Date: 05/15/18 18:13. L & D Note. - General Info. Date of Service: 05/15/18. Mother's Due Date: 06/03/18. - Delivery Note. Labor: Spontaneous. Delivery Outcome: Livebirth ( male liveborn 1649 hrs Thursday05/15/18 LUCINDA APGARs 8/9 weight pending). Infant Delivery Method: Spontaneous Vaginal Delivery-Single. Infant Delivery Mode: Spontaneous. Presentation: Left Occiput Anterior (LUCINDA). Nuchal Cord: None. Prep: Povidone-Iodine (Betadine. Anesthesia Type: Spinal. Episiotomy Type: None. Laceration: 1st Degree (periurethral and midline sutured with 3-0 monocryl). Suture type: Other (monocryl). Suture size: 3-0. Placenta: Intact , Spontaneous (165005/15/18 intact discarded spontaneous delivery). Cord: 3 Vessels. Estimated Blood Loss: 250. Resuscitation Needed: No. [place] : Suctioned, Bulb Syringe, Stimulated, Warmed, [place] Used, Warmer Used. Provider: Pierre Bal. Score 1 min: 8. Score 5 min : 9. - General Info. Date of Service: 05/15/18. Functional Status: Reports: Pain Controlled. - Review of Systems. General: Reports: No Symptoms. HEENT: Reports: No Symptoms. Pulmonary: Reports: No Symptoms. Cardiovascular: Reports : No Symptoms. Gastrointestinal: Reports: No Symptoms. Genitourinary: Reports : No Symptoms. Musculoskeletal: Reports: No Symptoms. Skin: Reports: No Symptoms. Neurological: Reports: No Symptoms. Psychiatric: Reports: No Symptoms. - Patient Data. Vitals - Most Recent: Last Vital Signs. Temp 98.6 F 05/15/18 09:36. Pulse 88 05/15/18 16:24. Resp 18 05/15/18 16:24. BP 130/ 88 05/15/18 16:24. Pulse Ox 98 05/15/18 16:24. Weight - Most Recent: 214 lb 4.8 oz. Lab Results Last 24 Hours: Laboratory Results - last 24 hr. 05/15/ /Range/Units. 09:3210:0010:00. WBC 9.08 (3.98-10.04) K/mm3. RBC 4.20 (3.98-5.22) M/mm3. Hgb 12.2 (11.2-15.7) gm/L. Hct 37.6 (34.1-44.9 ) %. MCV 89.5 (79.4-94.8) fl. MCH 29.0 (25.6-32.2) pg. MCHC 32.4 (32.2- 35.5) g/dl. RDW Std Deviation 46.1 (36.4-46.3) fL. Plt Count 212 (182-369) K/mm3. MPV 11.0 (9.4-12.3) fl. Neut % (Auto) 70.7 (34.0-71.1) %. Lymph % ( Auto) 18.5 L (19.3-51.7) %. Reeves % (Auto) 9.7 (4.7-12.5) %. Eos % (Auto) 0.7 (0.7-5.8). Baso % (Auto) 0.2 (0.1-1.2) %. Neut # (Auto) 6.42 H (1.56-6.13 ) K/mm3. Lymph # (Auto) 1.68 (1.18-3.74) K/mm3. Reeves # (Auto) 0.88 H (0.24- 0.36) K/mm3. Eos # (Auto) 0.06 (0.04-0.36) K/mm3. Baso # (Auto) 0.02 (0.01- 0.08) K/mm3. Urine Color Yellow (Yellow). Urine Appearance Slt cloudy H ( Clear). Urine pH 7.5 (5.0-8.0). Ur Specific [place] 1.020 (1.005-1.030). Urine Protein 1+ H (Negative). Urine Glucose (UA) Negative (Negative). Urine Ketones Negative (Negative). Urine Occult Blood Negative (Negative). Urine Nitrite Negative (Negative). Urine Bilirubin Negative (Negative). Urine Urobilinogen 0.2 (0.2-1.0). Ur Leukocyte Esterase Negative (Negative). Urine RBC 0-5 (0-5) /hpf. Urine WBC 0-5 (0-5) /hpf. Ur Epithelial Cells 0-5 (0-5) /hpf. Urine Bacteria Few (FEW) /hpf. Urine Mucus Not seen (FEW) /hpf. Blood Type O NEGATIVE. Gel Antibody Screen Positive. Med Orders - Current: Current Medications. Diphenhydramine HCl (Benadryl) 25 mg IVPUSH Q6H PRN. PRN Reason: Pruritis. Ephedrine Sulfate (Ephedrine Sulfate) 5 mg IVPUSH ASDIRECTED PRN. PRN Reason: Hypotension. Fentanyl (Sublimaze) 100 mcg EPIDUR ONETIME PRN. PRN Reason: Pain. Fentanyl/Bupivacaine HCl (Fentanyl/Bupivacaine/ Ns 2 Mcg-0.125% 100 Ml) 100 ml EPIDUR ASDIRECTED VINAYAK. Ampicillin Sodium 1 gm/ Sodium (Chloride) 100 mls @ 200 mls/hr IV Q4H VINAYAK. Lactated Ringer's (Ringers , Lactated) 1,000 mls @ 100 mls/hr IV ASDIRECTED VINAYAK. Oxytocin/Lactated Ringer 's (Pitocin In Lr 10 Units/1,000 Ml) 10 unit in 1,000 mls @ 500 mls/hr IV .CONTINUOUS VINAYAK. Oxytocin/Lactated Ringer's (Pitocin In Lr 10 Units/1,000 Ml) 10 unit in 1,000 mls @ 12 mls/hr IV TITRATE VINAYAK; Protocol. Nalbuphine HCl ( Nubain) 10 mg IVPUSH Q2H PRN. PRN Reason: pain. Ondansetron HCl (Zofran) 4 mg IVPUSH ONETIME PRN. PRN Reason: Nausea/Vomiting. Sodium Chloride (Saline Flush) 10 ml FLUSH ASDIRECTED PRN. PRN Reason: Keep Vein Open. Discontinued Medications. Ampicillin Sodium (Ampicillin) Confirm Administered Dose 2 gm IV .STK-MED ONE. Stop: 05/15/18 14:29. Ampicillin Sodium 2 gm/ Sodium (Chloride) 100 mls @ 200 mls/hr IV ONETIME ONE. Stop: 05/15/18 14:53. Lactated Ringer' s (Ringers, Lactated) Confirm Administered Dose 1,000 mls @ as directed .ROUTE .STK-MED ONE. Stop: 05/15/18 14:29. Sodium Chloride (Normal Saline) Confirm Administered Dose 100 mls @ as directed .ROUTE .STK-MED ONE. Stop: 05/15/18 14: 29. - Exam. General: Alert, Oriented. HEENT: Pupils Equal, Mucous Membr. Moist/[place]. Neck: Supple. (Female) Exam: Normal External Exam. Extremities : Normal Inspection, Normal Range of Motion, Non-Tender, No Pedal Edema, Normal Capillary Refill. - Problem List & Annotations. (1) 37 weeks gestation of . SNOMED Code(s): 85192007. Code(s): Z3A.37 - 37 WEEKS GESTATION OF Status: Acute Current Visit: Yes. (2) Carrier or suspected carrier of group B Streptococcus. SNOMED Code(s): 010826150. Code(s): Z22.330 - CARRIER OF GROUP B STREPTOCOCCUS Status: Acute Current Visit: Yes. (3) Advanced maternal age (AMA) in . SNOMED Code(s): 409785651. Code(s): WKT4413 - Status: Acute Current Visit: Yes. (4) Encounter for full-term uncomplicated delivery. SNOMED Code(s): 89631049, 878873812. Code(s): O80 - ENCOUNTER FOR FULL-TERM UNCOMPLICATED DELIVERY Status: Acute Current Visit: Yes. - Problem List Review. Problem List Initiated/Reviewed/Updated: No. - My Orders. Last 24 Hours: My Active Orders. 05/15/18 09:32. CULTURE URINE [ RM] Stat. 05/15/18 09:44. Non Stress Test [RC] PER UNIT ROUTINE. Vital Signs [RC] PER UNIT ROUTINE. Resuscitation Status Routine. 05/15/18 10:00. ANTIBODY IDENTIFICATION [BBK] Stat. RAPID PLASMA REAGIN,RPR [CHEM] Routine. TYPE AND SCREEN [BBK] Stat. 05/15/18 14:23. Patient Status [ADT] Routine. Activity as Tolerated [RC] PFP. Communication Order [RC] ASDIRECTED. Heart Tones [RC] ASDIRECTED. Notify Provider [RC] PFP. Notify Provider [RC] PRN. Peripheral IV Care [RC] . DIRECTED. Nalbuphine [Nubain] 10 mg IVPUSH Q2H PRN. Sodium Chloride 0.9% [Saline Flush] 10 ml FLUSH ASDIRECTED PRN. Electronic Heart Tones Ext w TOCO [WOMSER] Routine. Electronic Heart Tones Internal [WOMSER] Per Unit Routine. Peripheral IV Insertion Adult [ OM.PC] Routine. 05/15/18 14:30. Lactated Ringers [Ringers, Lactated] 1,000 ml IV ASDIRECTED. Oxytocin/Lactated Ringers [Pitocin in LR 10 Units/1,000 ML] 10 unit in 1,000 ml IV .CONTINUOUS. Oxytocin/Lactated Ringers [Pitocin in LR 10 Units/1,000 ML] 10 unit in 1,000 ml IV TITRATE. 05/15/18 18:30. Ampicillin 1 gm Sodium Chloride 0.9% [Normal Saline] 100 ml IV Q4H. 05/15/18 Lunch. Regular Diet [DIET]. - Plan. Plan:: Plan labor and delivery Diagnosis: Stroke: No - Discharge Data Discharge Date: 05/17/18 Discharge Disposition: Home, Self-Care 01 Condition: Good - Discharge Diagnosis/Problem(s) (1) 37 weeks gestation of SNOMED Code(s): 07374436 ICD Code: Z3A.37 - 37 WEEKS GESTATION OF Status: Acute Current Visit: Yes (2) Carrier or suspected carrier of group B Streptococcus SNOMED Code(s): 340182471 ICD Code: Z22.330 - CARRIER OF GROUP B STREPTOCOCCUS Status: Acute Current Visit: Yes (3) Advanced maternal age (AMA) in SNOMED Code(s): 897051326 ICD Code: NFL2704 - Status: Acute Current Visit: Yes (4) Encounter for full-term uncomplicated delivery SNOMED Code(s): 44263929, 167427799 ICD Code: O80 - ENCOUNTER FOR FULL-TERM UNCOMPLICATED DELIVERY Status: Acute Current Visit: Yes - Patient Summary/Data Complications: none Consults: none Hospital Course: uneventful - Patient Instructions Diet: Usual Diet as Tolerated Driving: Do Not Drive (x48 hrs) Showering/Bathing: May Shower Notify Provider of: Fever, Increased Pain, Swelling and Redness, Drainage, Nausea and/or Vomiting - Discharge Plan *PRESCRIPTION DRUG MONITORING PROGRAM REVIEWED*: Not Applicable *COPY OF PRESCRIPTION DRUG MONITORING REPORT IN PATIENT HECTOR: Not Applicable Home Medications: Home Meds Acetaminophen [Tylenol] 650 mg PO Q6H PRN tablet 05/17/18 [Rx] Benzocaine/Menthol [Dermoplast Pain Relief Cass] 1 spray TOP ASDIRECTED PRN canister 05/17/18 [Rx] Docusate Sodium [Colace] 100 mg PO BID PRN cap 05/17/18 [Rx] Ibuprofen [Motrin] 600 mg PO Q6H PRN tablet 05/17/18 [Rx] Lanolin [Lansinoh HPA] 1 applic TOP ASDIRECTED PRN tube 05/17/18 [Rx] Witch Anabel [Tucks] 1 pad TOP ASDIRECTED PRN pad 05/17/18 [Rx] Referrals: Shankar Osborn MD [Primary Care Provider] - (2 weeks) - Discharge Summary/Plan Comment DC Time >30 min.: No - Patient Data Vitals - Most Recent: Last Vital Signs Temp 99.0 F 05/17/18 03:00 Pulse 87 05/17/18 03:00 Resp 14 05/17/18 03:00 BP 102/86 05/17/18 03:00 Pulse Ox 97 05/17/18 03:00 Weight - Most Recent: 214 lb 4.8 oz Lab Results - Last 24 hrs: Laboratory Results - last 24 hr 05/15/18 Range/Units 10:00 RPR Non-reactive (NONREACTIVE) LYDIA Results - Last 24 hrs: Microbiology 05/15/18 09:32 Urine Culture - Preliminary Urine, Clean Catch Escherichia Coli Med Orders - Current: Current Medications Acetaminophen (Tylenol) 650 mg PO Q4H PRN PRN Reason: mild pain or fever Benzocaine/Menthol (Dermoplast Pain Relief Cass) 0 gm TOP ASDIRECTED PRN PRN Reason: Perineal Comfort Measure Docusate Sodium (Colace) 100 mg PO BID PRN PRN Reason: Constipation Emollient Ointment (Lansinoh Hpa) 0 gm TOP ASDIRECTED PRN PRN Reason: Sore Nipples Ibuprofen (Motrin) 600 mg PO Q4H PRN PRN Reason: Mild pain or fever Last Admin: 05/16/18 15:00 Dose: 600 mg Witch Anabel (Tucks) 1 pad TOP ASDIRECTED PRN PRN Reason: Hemorrhoid pain Discontinued Medications Ampicillin Sodium (Ampicillin) Confirm Administered Dose 2 gm IV .STK-MED ONE Stop: 05/15/18 14:29 Diphenhydramine HCl (Benadryl) 25 mg IVPUSH Q6H PRN PRN Reason: Pruritis Ephedrine Sulfate (Ephedrine Sulfate) 5 mg IVPUSH ASDIRECTED PRN PRN Reason: Hypotension Fentanyl (Sublimaze) 100 mcg EPIDUR ONETIME PRN PRN Reason: Pain Fentanyl/Bupivacaine HCl (Fentanyl/Bupivacaine/Ns 2 Mcg-0.125% 100 Ml) 100 ml EPIDUR ASDIRECTED VINAYAK Ampicillin Sodium 2 gm/ Sodium (Chloride) 100 mls @ 200 mls/hr IV ONETIME ONE Stop: 05/15/18 14:53 Last Admin: 05/15/18 16:10 Dose: 200 mls/hr Ampicillin Sodium 1 gm/ Sodium (Chloride) 100 mls @ 200 mls/hr IV Q4H VINAYAK Lactated Ringer's (Ringers, Lactated) 1,000 mls @ 100 mls/hr IV ASDIRECTED VINAYAK Oxytocin/Lactated Ringer's (Pitocin In Lr 10 Units/1,000 Ml) 10 unit in 1,000 mls @ 500 mls/hr IV .CONTINUOUS VINAYAK Last Admin: 05/15/18 16:55 Dose: 500 mls/hr Oxytocin/Lactated Ringer's (Pitocin In Lr 10 Units/1,000 Ml) 10 unit in 1,000 mls @ 12 mls/hr IV TITRATE VINAYAK; Protocol Lactated Ringer's (Ringers, Lactated) Confirm Administered Dose 1,000 mls @ as directed .ROUTE .K-MED ONE Stop: 05/15/18 14:29 Sodium Chloride (Normal Saline) Confirm Administered Dose 100 mls @ as directed .ROUTE .STK-MED ONE Stop: 05/15/18 14:29 Last Admin: 05/15/18 16:05 Dose: 999 mls/hr Nalbuphine HCl (Nubain) 10 mg IVPUSH Q2H PRN PRN Reason: pain Last Admin: 05/15/18 16:00 Dose: 10 mg Ondansetron HCl (Zofran) 4 mg IVPUSH ONETIME PRN PRN Reason: Nausea/Vomiting Sodium Chloride (Saline Flush) 10 ml FLUSH ASDIRECTED PRN PRN Reason: Keep Vein Open
[2018-05-17] MEDS: Ibuprofen 600 MG Tab PO PRN (09:40)
== END 2018-05-17 18:19 | disposition home or self-care (01) | DRG 806 ==
LOC: JD.OBCHECK 09:20 → JD.OB 09:24 → JD.OBCHECK 14:23 → JD.OB 16:49 → OBSVTOIN 16:49
PROVIDERS: ADMIT Obstetrics & Gynecology; ATTEND Obstetrics & Gynecology
PROC: 0UQMXZZ Repair Vulva, External Approach (ICD-10-PCS; principal; 2018-05-15)
PROC: 10E0XZZ Delivery of Products of Conception, External Approach (ICD-10-PCS; principal; 2018-05-15)
PROC: 3E0234Z Introduction of Serum, Toxoid and Vaccine into Muscle, Percutaneous Approach (ICD-10-PCS; 2018-05-15)
PROC: 3E0R3BZ Introduction of Anesthetic Agent into Spinal Canal, Percutaneous Approach (ICD-10-PCS; 2018-05-15)
PROC: 00HU33Z Insertion of Infusion Device into Spinal Canal, Percutaneous Approach (ICD-10-PCS; 2018-05-15)
DX: O99.824 Streptococcus B carrier state complicating childbirth (principal); O98.32 Other infections with a predominantly sexual mode of transmission complicating childbirth; Z37.0 Single live birth; A63.0 Anogenital (venereal) warts; O71.82 Other specified trauma to perineum and vulva; Z3A.37 37 weeks gestation of pregnancy; O26.893 Other specified pregnancy related conditions, third trimester; Z67.41 Type O blood, Rh negative; O62.2 Other uterine inertia
CPT/HCPCS: 36415; 59025; 59409; 81001; 85025; 85461; 86592; 87077; 87086; 87088; 87186; A9270-GY; J0290; J2300; J2590; J2790; J7030

== ENCOUNTER 2021-07-09 10:54 | Emergency (ER) | payer MEDICAID | END 2021-07-09 11:14 | disposition home or self-care (01) | LOC: JD.ED 10:54 | DX: R00.2 Palpitations (principal) | CPT/HCPCS: 93225; 93226; 99283; 99284-25 ==

== ENCOUNTER 2021-10-30 19:47 | Inpatient (IN) | payer MEDICAID ==
[2021-10-30] MEDS ORDERED: Diltiazem 50 MG/10 ML SDV IVPUSH STA (20:15)
[2021-10-30] MEDS ORDERED: Diltiazem 100 MG in Sodium Chloride 0.9% 100 ML IV SCH (20:15)
[2021-10-30] MEDS ORDERED: Heparin Sodium 5,000 Units/ML Vial IVPUSH STA (20:44)
[2021-10-30] MEDS ORDERED: Heparin Sodium/D5W 25,000 UNITS/500 ML BAG IV SCH (20:45)
[2021-10-30] MEDS ORDERED: Potassium Chloride 20 MEQ Tab.ER PO ONE (22:23)
[2021-10-31] MEDS ORDERED: Metoprolol Succinate 25 MG Tab.ER PO SCH (09:00)
[2021-10-31] MEDS ORDERED: Apixaban 5 MG Tab PO SCH (09:00)
== END 2021-11-01 08:59 | disposition home or self-care (01) | DRG 308 ==
LOC: JD.ED 19:47 → JD.ICU 23:44
PROVIDERS: ADMIT Internal Medicine; ATTEND Internal Medicine
PROC: 8E0ZXY6 Isolation (ICD-10-PCS; principal; 2021-10-30)
DX: I48.0 Paroxysmal atrial fibrillation (principal); U07.1 COVID-19; E87.6 Hypokalemia; R73.9 Hyperglycemia, unspecified; I07.1 Rheumatic tricuspid insufficiency; Z79.899 Other long term (current) drug therapy; Z86.16 Personal history of COVID-19
CPT/HCPCS: 36415; 71045; 80053; 83735; 83880; 84484; 85025; 85379; 93005; A9270; J1644 ×2; J3490 ×2; 85730; 93306